=== PATIENT | female | born 1945 | race Caucasian/White ===

== ENCOUNTER 2019-01-22 14:00 | Emergency (ER) | payer OTHER ==
[~2019-01-22] VITALS: Ht 154.9 cm; Wt 89.8 kg
[2019-01-22 14:05] VITALS: Ht 154.9 cm; Wt 89.8 kg
[2019-01-22 17:00] VITALS: BP 128/70
== END 2019-01-22 17:00 | disposition home or self-care (01) ==
LOC: ED 14:00
DX: J45.901 Unspecified asthma with (acute) exacerbation (principal); I10 Essential (primary) hypertension; E11.9 Type 2 diabetes mellitus without complications
CPT/HCPCS: J7512; J7613; Q0092